=== PATIENT | male | born 1985 | race Native Hawaiian/Other Pacific Islander ===

== ENCOUNTER 2016-09-15 16:57 | Emergency (ER) | payer OTHER ==
[2016-09-15 18:05] LABS: Hematocrit 44.4 % (35.5-45.6); Hemoglobin 14.8 gm/dl (11.8-15.2); Mean Corpuscular HGB Conc 33 % (32-34); Mean Corpuscular Hemoglobin 29 pg (28-32); Mean Corpuscular Volume 88 fl (84-94); Platelet Count 191 K/mm3 (140-440); Red Blood Count 5.07 M/mm3 (3.65-5.03); Red Cell Distribution Width 13.9 % (13.2-15.2); White Blood Count 14.1 K/mm3 (4.5-11.0)
[2016-09-15 18:20] LABS: Alanine Aminotransferase 22 units/L (7-56); Albumin 4.7 g/dL (3.9-5); Albumin/Globulin Ratio 1.8 %; Alkaline Phosphatase 106 units/L (35-129); Amylase 56 units/L (27-131); Bilirubin,Total 0.4 mg/dL (0.1-1.2); Blood Urea Nitrogen 12 mg/dL (9-20); Calcium 9.1 mg/dL (8.4-10.2); Carbon Dioxide 23 mmol/L (22-30); Glucose 189 mg/dL (75-100); Lipase 27 units/L (13-60); Potassium 4.7 mmol/L (3.6-5.0); Sodium 139 mmol/L (137-145); Total Protein 7.3 g/dL (6.3-8.2)
[2016-09-15 18:22] LABS: Anion Gap 21 mmol/L
[2016-09-15 19:56] LABS: Blastocytes % (Manual) 0 %; Diff Status Complete; Eosinophils % (Manual) 0 % (0.0-4.3); RBC Morphology Normal
[2016-09-15] MEDS ORDERED: ZOFRAN ODT PO ONE (20:04)
[2016-09-15] MEDS ORDERED: DECADRON IV ONE (20:27)
[2016-09-15] MEDS ORDERED: NACL 0.9% 1000 ML 1,000 ML IV ONE (20:27)
[2016-09-15] MEDS ORDERED: REGLAN IV ONE (20:27)
[2016-09-15] MEDS ORDERED: TORADOL IV ONE (20:27)
[2016-09-15] MEDS ORDERED: DILAUDID IV ONE (20:27)
[2016-09-15] MEDS ORDERED: BENADRYL IV ONE (20:27)
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
--- NOTE | 2016-09-15 20:42 | Cat Scan Report ---
FINAL REPORT PROCEDURE: CT HEAD/BRAIN WO CON TECHNIQUE: Computerized tomography of the head was performed without contrast material. HISTORY: vertigo,severe headache,N/V COMPARISON: No prior studies are available for comparison. FINDINGS: Skull and scalp: Normal. Paranasal sinuses: Normal. Ventricles and subarachnoid spaces: Normal. Arachnoid cyst in the left middle cranial fossa. Cerebrum: No evidence of hemorrhage, acute infarction or mass . Cerebellum and brainstem: Diminished densities of the right cerebellum suggesting recent infarction. Vasculature: Normal. Comments: None. IMPRESSION: Recent right cerebellar infarct. No hemorrhage Results discussed with Dr. Beatty at 8:35 p.m.
[2016-09-15 21:23] LABS: INR 0.97 (0.87-1.13)
[2016-09-15 21:24] LABS: Partial Thromboplastin Time 28.3 Sec. (24.2-36.6)
[2016-09-15] MEDS ORDERED: BENADRYL ONE (22:24)
[2016-09-15 23:53] LABS: Bilirubin,Urine NEG (Negative); Blood,Urine NEG (Negative); Ketones,Urine NEG (Negative); Leukocyte Esterase,Urine NEG (Negative); Nitrite,Urine NEG (Negative); Protein,Urine <15 mg/dL mg/dL (Negative); Urobilinogen,Urine < 2.0 mg/dL (<2.0)
[2016-09-16 01:46] VITALS: BP 113/50
== END 2016-09-16 00:45 | disposition short-term general hospital (02) ==
LOC: ED 16:57
DX: I63.9 Cerebral infarction, unspecified (principal)
CPT/HCPCS: 36415; 70450; 80053; 81001; 82150; 82962; 83690; 85007; 85025; 85610; 85730; 93005; 93010; 96361; 96374; 96375; 99291; J1100; J1170; J1200; J1885; J2765; J7030; Q0162